=== PATIENT | female | born 1975 | race Caucasian/White ===

== ENCOUNTER 2017-02-17 12:27 | Emergency (ER) | payer BC ==
[~2017-02-17] VITALS: Ht 172.7 cm; Wt 86.2 kg
[2017-02-17 12:27] VITALS: BP_SYST 140
[2017-02-17] MEDS ORDERED: DEXAMETHASONE SOD PHOSPHATE 10 MG/ML VIAL IM ONE (15:30)
[2017-02-17] MEDS ORDERED: IBUPROFEN 800 MG TABLET PO ONE (15:30)
[2017-02-17] MEDS ORDERED: PENICILLIN G BENZATHINE 1.2 MMU/2 ML SYR IM ONE (15:30)
[2017-02-17 15:50] VITALS: BP_SYST 129
== END 2017-02-17 15:50 | disposition home or self-care (01) ==
LOC: SED 12:27
DX: R03.0 Elevated blood-pressure reading, without diagnosis of hypertension (principal)
CPT/HCPCS: 96372; 99284; J0561; J1100